=== PATIENT | male | born 1980 | race American Indian/Alaskan Native ===

== ENCOUNTER 2023-11-08 09:40 | Observation (INO) | payer SELFPAY ==
[2023-11-08] MEDS ORDERED: MECLIZINE HCL 25 MG TABLET (FP) ONE (10:58)
[2023-11-08 11:09] LABS: BASO % 0.4 % (0-2.0); EOS % 0.7 % (0-4.5); HEMATOCRIT 40.3 % (35.4-49); HEMOGLOBIN 13.9 GM/dL (11.7-16.9); LYMPH % 11.8 % (8-40); MCH 28.8 pg (25.7-33.7); MCHC 34.4 g/dl (32.0-35.9); MEAN CELL VOLUME 83.9 fl (80-96); MEAN PLT VOLUME 8.2 fl (7.5-11.1); MONO % 5.6 % (3.8-10.2); NEUT % 81.5 % (42.8-82.8); PLATELET COUNT 389 10^3/uL (134-434); RDW 13.6 % (11.9-15.9); WHITE BLOOD COUNT 10.4 K/mm3 (4.0-10.0)
[2023-11-08] MEDS: MECLIZINE HCL 25 MG TABLET (FP) PO ONE (11:12)
[2023-11-08 11:19] LABS: INR 1.06 (0.83-1.09); PROTHROMBIN TIME (PATIENT) 12.3 SEC (9.7-13.0)
[2023-11-08 11:22] LABS: ACTIVATED PTT 27.8 SECONDS (25.2-36.5)
[2023-11-08 11:43] LABS: POTASSIUM 3.7 mmol/L (3.5-5.1)
[2023-11-08 11:45] LABS: BLOOD UREA NITROGEN 17.4 mg/dL (7-18); CALCIUM 9.4 mg/dL (8.5-10.1)
[2023-11-08 11:46] LABS: ALBUMIN 4.2 g/dl (3.4-5.0)
[2023-11-08 11:50] LABS: BILIRUBIN,TOTAL 0.9 mg/dL (0.2-1)
[2023-11-08] MEDS ORDERED: LORazepam 1 MG TABLET ONE (13:25)
[2023-11-08] MEDS: LORazepam 1 MG TABLET PO ONE (13:34)
[2023-11-08] MEDS ORDERED: diazePAM 2 MG TABLET ONE (18:15)
[2023-11-08] MEDS: diazePAM 2 MG TABLET PO ONE (18:17)
[2023-11-08] MEDS ORDERED: MECLIZINE HCL 25 MG TABLET (FP) PO PRN (22:05)
[2023-11-08] MEDS: SODIUM CHLORIDE 1,000 ML IV SCH (22:24)
[2023-11-09 00:57] VITALS: RESP 18
[2023-11-09 01:54] VITALS: BMI 34.9
[2023-11-09 04:37] LABS: PH,URINE 5.5 (5.0-8.0); URINE APPEARANCE CLEAR; URINE BILIRUBIN NEGATIVE (NEGATIVE); URINE COLOR YELLOW; URINE GLUCOSE (UA) NEGATIVE (NEGATIVE); URINE KETONE NEGATIVE (NEGATIVE); URINE LEUK ESTERASE NEGATIVE (NEGATIVE); URINE NITRITE NEGATIVE (NEGATIVE); URINE PROTEIN NEGATIVE (NEGATIVE); URINE UROBILINOGEN 0.2 mg/dL (0.2-1.0)
[2023-11-09 04:46] LABS: COCAINE, UR NEGATIVE (NEGATIVE); METHADONE, UR NEGATIVE (NEGATIVE); OPIATES, URI NEGATIVE (NEGATIVE); PHENCYCLIDINE,URINE NEGATIVE (NEGATIVE); URINE BARBITURATES NEGATIVE (NEGATIVE); URINE BENZODIAZEPINES NEGATIVE (NEGATIVE)
[2023-11-09 04:47] LABS: URINE AMPHETAMINES NEGATIVE (NEGATIVE)
[2023-11-09 09:14] LABS: BASO % 0.9 % (0-2.0); HEMATOCRIT 40.5 % (35.4-49); HEMOGLOBIN 13.4 GM/dL (11.7-16.9); LYMPH % 29.2 % (8-40); MCH 28.1 pg (25.7-33.7); MCHC 33.1 g/dl (32.0-35.9); MEAN CELL VOLUME 84.9 fl (80-96); MEAN PLT VOLUME 8.5 fl (7.5-11.1); MONO % 9.1 % (3.8-10.2); NEUT % 57.8 % (42.8-82.8); PLATELET COUNT 374 10^3/uL (134-434); RBC 4.77 M/mm3 (4.00-5.60); RDW 13.5 % (11.9-15.9); WHITE BLOOD COUNT 8.7 K/mm3 (4.0-10.0)
[2023-11-09 09:37] LABS: POTASSIUM 3.4 mmol/L (3.5-5.1)
[2023-11-09 09:44] LABS: ALBUMIN 3.7 g/dl (3.4-5.0); CALCIUM 8.8 mg/dL (8.5-10.1); MAGNESIUM 2.4 mg/dL (1.8-2.4)
[2023-11-09 09:45] LABS: BLOOD UREA NITROGEN 14.9 mg/dL (7-18)
[2023-11-09 09:48] LABS: PHOSPHOROUS 3.9 mg/dL (2.5-4.9)
[2023-11-09 09:49] LABS: BILIRUBIN,TOTAL 0.8 mg/dL (0.2-1); CHOLESTEROL 134 mg/dL (50-200); TOT PROT 7.1 g/dl (6.4-8.2)
[2023-11-09 09:50] LABS: LDL CHOLESTEROL (ONLY SJRH) 75 mg/dL (5-100)
[2023-11-09 09:53] LABS: HDL CHOLESTEROL 45 mg/dL (40-60)
[2023-11-09] MEDS: ENOXAPARIN NA (PORCINE) 40 MG/0.4 ML DISP.SYRIN SQ SCH (10:38)
[2023-11-09] MEDS: EZETIMIBE 10 MG TABLET (FP) PO SCH (10:41)
[2023-11-09 11:42] VITALS: BP 127/77; PULSE 72; TEMP 98.2
[2023-11-09] MEDS ORDERED: ATORVASTATIN CA 20 MG TABLET (FP) PO SCH (22:00)
== END 2023-11-09 11:47 | disposition home or self-care (01) ==
LOC: JER 09:40 → JERBED 19:19 → J5S 11-09 01:37
PROVIDERS: ADMIT Internal Medicine
PROC: 3E0337Z Introduction of Electrolytic and Water Balance Substance into Peripheral Vein, Percutaneous Approach (ICD-10-PCS; principal; 2023-11-08)
DX: R42 Dizziness and giddiness (principal); R26.2 Difficulty in walking, not elsewhere classified; H93.19 Tinnitus, unspecified ear; I10 Essential (primary) hypertension; E78.5 Hyperlipidemia, unspecified
CPT/HCPCS: 36415; 70544-TC; 70547-TC; 70551-TC; 71045-TC-FY; 80053; 80061; 80307; 81003; 82962; 83735; 84100; 84443; 85025; 85610; 85730; 86850; 86900; 86901; 87086; 93005; 93010; 97116-GP; 97161-GP; 99285-25; G0378

== ENCOUNTER 2024-03-23 12:17 | Observation (INO) | payer BC, OTHER ==
[2024-03-23] MEDS ORDERED: ADENOSINE 6 MG/2 ML VIAL IVPUSH ONE (12:30)
[2024-03-23 13:03] LABS: BASO % 0.4 % (0-2.0); HEMATOCRIT 40.1 % (35.4-49); HEMOGLOBIN 13.6 GM/dL (11.7-16.9); LYMPH % 7.9 % (8-40); MCH 28.4 pg (25.7-33.7); MCHC 33.9 g/dl (32.0-35.9); MEAN PLT VOLUME 8.5 fl (7.5-11.1); MONO % 6.4 % (3.8-10.2); NEUT % 84.3 % (42.8-82.8); PLATELET COUNT 319 10^3/uL (134-434); RBC 4.78 M/mm3 (4.00-5.60); RDW 13.8 % (11.9-15.9); WHITE BLOOD COUNT 16.5 K/mm3 (4.0-10.0)
[2024-03-23 13:15] LABS: INR 0.99 (0.83-1.09); PROTHROMBIN TIME (PATIENT) 11.2 SEC (9.7-13.0)
[2024-03-23] MEDS ORDERED: LACTATED RINGERS SOLUTION 1000 ML INFUS.BAG IV ONE (13:15)
[2024-03-23 13:17] LABS: ACTIVATED PTT 31.5 SECONDS (25.2-36.5)
[2024-03-23] MEDS: SODIUM CHLORIDE 0.9% 500 ML INFUS.BAG IV ONE (13:17)
[2024-03-23] MEDS ORDERED: SODIUM CHLORIDE 0.9% 1000 ML INFUS.BAG IV STA (13:42)
[2024-03-23 13:53] LABS: POTASSIUM 3.7 mmol/L (3.5-5.1)
[2024-03-23 13:56] LABS: CALCIUM 8.8 mg/dL (8.5-10.1)
[2024-03-23 13:57] LABS: ALBUMIN 3.8 g/dl (3.4-5.0); BLOOD UREA NITROGEN 13.9 mg/dL (7-18); MAGNESIUM 2.2 mg/dL (1.8-2.4)
[2024-03-23 14:02] LABS: BILIRUBIN,TOTAL 0.8 mg/dL (0.2-1); TOT PROT 7.5 g/dl (6.4-8.2)
[2024-03-23 14:03] LABS: CREATININE 1.1 mg/dL (0.55-1.3)
[2024-03-23 14:04] LABS: N-TERMINAL BNP 294.3 pg/ml (5-125)
[2024-03-23 14:49] LABS: VENOUS BASE EXCESS 0.6 mmol/L (-2-2); VENOUS O2 SATURATION 74.9 % (70-80); VENOUS PCO2 42.7 mmHg (38-52); VENOUS PH 7.397 (7.310-7.410)
[2024-03-23 14:51] LABS: URINE APPEARANCE CLEAR; URINE BILIRUBIN NEGATIVE (NEGATIVE); URINE COLOR YELLOW; URINE GLUCOSE (UA) NEGATIVE (NEGATIVE); URINE KETONE NEGATIVE (NEGATIVE); URINE LEUK ESTERASE NEGATIVE (NEGATIVE); URINE NITRITE NEGATIVE (NEGATIVE); URINE PROTEIN NEGATIVE (NEGATIVE); URINE UROBILINOGEN 0.2 mg/dL (0.2-1.0)
[2024-03-23 14:56] LABS: INR 0.99 (0.83-1.09); PROTHROMBIN TIME (PATIENT) 11.2 SEC (9.7-13.0)
[2024-03-23] MEDS ORDERED: ASPIRIN 81 MG CHEWABLE TABLETS ONE (15:00)
[2024-03-23] MEDS ORDERED: ACETAMINOPHEN INJECTION 100 ML IVPB ONE (15:01)
[2024-03-23] MEDS ORDERED: CEFTRIAXONE 1 GM/50 ML BAG ONE (15:01)
[2024-03-23] MEDS: ACETAMINOPHEN 1000 MG/100 ML BAG IVPB ONE (15:15)
[2024-03-23] MEDS: ASPIRIN 81 MG CHEWABLE TABLETS PO ONE (15:15)
[2024-03-23] MEDS: CEFTRIAXONE 1 GM in DEXTROSE 5%-WATER - 100 ML IVPB ONE (15:15)
[2024-03-23 15:25] LABS: LACTIC ACID 3.3 mmol/L (0.4-2.0)
[2024-03-23] MEDS ORDERED: AZITHROMYCIN IVPB 500 MG/250 ML BAG IVPB ONE (17:21)
[2024-03-23] MEDS: SODIUM CHLORIDE 1,000 ML IV SCH (17:32)
[2024-03-23] MEDS: AZITHROMYCIN IVPB 500 MG in DEXTROSE 5%-WATER - 250 ML IVPB ONE (17:32)
[2024-03-23] MEDS ORDERED: PENICILLIN G BENZATHINE 1,200,000 UNIT/2 ML PFS IM ONE (18:30)
[2024-03-23] MEDS: PENICILLIN G BENZATHINE 1,200,000 UNIT/2 ML PFS IM ONE (18:34)
[2024-03-23] MEDS ORDERED: ATORVASTATIN CA 20 MG TABLET (FP) PO SCH (22:00)
[2024-03-23] MEDS: ATORVASTATIN CA 80 MG TABLET (FP) PO SCH (22:27)
[2024-03-23] MEDS: METOPROLOL TARTRATE 25 MG TABLET (FP) PO SCH (22:27)
[2024-03-23 23:09] VITALS: BMI 34.4
[2024-03-24 08:47] LABS: BASO % 0.5 % (0-2.0); EOS % 0.7 % (0-4.5); HEMATOCRIT 39.6 % (35.4-49); HEMOGLOBIN 13.1 GM/dL (11.7-16.9); LYMPH % 9.3 % (8-40); MCH 28.3 pg (25.7-33.7); MCHC 33.1 g/dl (32.0-35.9); MEAN CELL VOLUME 85.5 fl (80-96); MEAN PLT VOLUME 8.9 fl (7.5-11.1); MONO % 6.1 % (3.8-10.2); NEUT % 83.4 % (42.8-82.8); PLATELET COUNT 272 10^3/uL (134-434); RBC 4.64 M/mm3 (4.00-5.60); RDW 13.6 % (11.9-15.9); WHITE BLOOD COUNT 14.4 K/mm3 (4.0-10.0)
[2024-03-24 09:04] LABS: POTASSIUM 3.5 mmol/L (3.5-5.1)
[2024-03-24 09:13] LABS: CALCIUM 8.7 mg/dL (8.5-10.1); CHOLESTEROL 154 mg/dL (50-200); HDL CHOLESTEROL 55 mg/dL (40-60); LDL CHOLESTEROL (ONLY SJRH) 81 mg/dL (5-100)
[2024-03-24 09:15] LABS: ALBUMIN 3.9 g/dl (3.4-5.0); BLOOD UREA NITROGEN 8.3 mg/dL (7-18); MAGNESIUM 2.3 mg/dL (1.8-2.4)
[2024-03-24 09:17] LABS: CREATININE 0.8 mg/dL (0.55-1.3); PHOSPHOROUS 2.7 mg/dL (2.5-4.9)
[2024-03-24 09:19] LABS: TOT PROT 7.3 g/dl (6.4-8.2)
[2024-03-24] MEDS: ENOXAPARIN NA (PORCINE) 40 MG/0.4 ML DISP.SYRIN SQ SCH (09:27)
[2024-03-24] MEDS: EZETIMIBE 10 MG TABLET (FP) PO SCH (09:27)
[2024-03-24] MEDS: LOSARTAN POTASSIUM 50 MG TABLET PO SCH (09:27)
[2024-03-24] MEDS: ASPIRIN COATED 81 MG TABLET.EC PO SCH (09:28)
[2024-03-24] MEDS ORDERED: HYDROCHLOROTHIAZIDE 12.5 MG CAPSULE (FP) PO SCH (10:00)
[2024-03-24] MEDS: POTASSIUM CHLORIDE TABS 20 MEQ TABLET.ER (FP) PO ONE ×2 (12:47→15:19)
[2024-03-24 15:12] VITALS: BP 136/92; RESP 20; TEMP 98.8
[2024-03-24 16:26] VITALS: PULSE 80
== END 2024-03-24 16:56 | disposition home or self-care (01) ==
LOC: JER 12:17 → UNDOADMOB 16:36 → JERBED 16:36 → INTOOBSV 16:36 → JERBED 17:02 → J4W 18:59 → JERBED 18:59 → J4W 18:59
PROVIDERS: ADMIT Internal Medicine; ATTEND Internal Medicine
PROC: 3E033NZ Introduction of Analgesics, Hypnotics, Sedatives into Peripheral Vein, Percutaneous Approach (ICD-10-PCS; principal; 2024-03-23)
PROC: 3E03329 Introduction of Other Anti-infective into Peripheral Vein, Percutaneous Approach (ICD-10-PCS; 2024-03-23)
PROC: 3E03329 Introduction of Other Anti-infective into Peripheral Vein, Percutaneous Approach (ICD-10-PCS; 2024-03-23)
PROC: 3E023GC Introduction of Other Therapeutic Substance into Muscle, Percutaneous Approach (ICD-10-PCS; 2024-03-23)
PROC: 3E02329 Introduction of Other Anti-infective into Muscle, Percutaneous Approach (ICD-10-PCS; 2024-03-23)
DX: R79.89 Other specified abnormal findings of blood chemistry (principal); I47.10 Supraventricular tachycardia, unspecified; J02.0 Streptococcal pharyngitis; I10 Essential (primary) hypertension; E78.5 Hyperlipidemia, unspecified; Z29.89 Encounter for other specified prophylactic measures
CPT/HCPCS: 0241U-QW; 36415; 70360-TC-FY; 71045-TC-FY; 76705-TC; 80053; 80061; 81003; 82803; 82962; 83036; 83605; 83735; 83880; 84100; 84439; 84443; 84481; 84484; 85025; 85610; 85730; 86850; 86900; 86901; 87040; 87086; 87651; 93005; 93010; 93306-TC; 94660; 96361; 96365; 96367; 96372; 96375; 99285-25; G0378; J0131